=== PATIENT | male | born 1965 | race Caucasian/White ===

== ENCOUNTER → 2018-06-06 | Outpatient (CLI) | payer OTHER ==
[~2018-06-06] MED LIST: FENO160T11 PO; LISI-362 PO; NIAC250T25 PO; NIAC500T85 PO; OMEG500C5 PO; RED600CA15 PO; ZOLP-358 PO; ZOLP-360 PO
== END ==
LOC: LAB 09:39
PROVIDERS: ATTEND Surgery
DX: K13.0 Diseases of lips (principal)
CPT/HCPCS: 88305

== ENCOUNTER → 2019-06-10 | Outpatient (CLI) | payer BC ==
--- NOTE | 2019-06-10 15:56 | RADIOLOGY IMAGING REPORT ---
FACILITY: [facility] - [place] PATIENT NAME: Lonnie Williamson : 1965 MR: [id number] V: [id number] EXAM DATE: ORDERING PHYSICIAN: NERY SZYMANSKI TECHNOLOGIST: Location: [facility] - [place], [place] Patient: Lonnie Williamson : 1965 Visit/Account:[id number] Date of Sevice: 06/10/2019 Exam type: FOOT 2 VIEW RIGHT History: Bump on right third toe x3 months, evaluate for foreign body Comparison: None. Findings: Two views the right foot were submitted there mild to moderate degenerative changes at the left first MTP joint. Mild generative changes are seen throughout the interphalangeal joints. Small lucent le russell is seen along the medial aspect of the base of the distal phalanx of the right great toe. No ra diopaque foreign bodies are identified IMPRESSION: 1. Degenerative changes as described No radiopaque foreign bodies identified Report Dictated By: Devi Ibarra MD at 06/10/2019 3:39 PM Report E-Signed By: Devi Ibarra MD at 06/10/2019 3:48 PM WSN:[id number]
== END ==
LOC: RAD 15:09
PROVIDERS: ATTEND Surgery
DX: R22.41 Localized swelling, mass and lump, right lower limb (principal)